=== PATIENT | male | born 1945 | race Caucasian/White ===

== ENCOUNTER → 2019-12-28 14:38 | Outpatient (BNVA) | payer OTHER, SELFPAY | PROVIDERS: Family Provider Family Medicine; PCP Family Medicine; Visit Provider Nurse Practitioner Family | DX: R97.20 Elevated prostate specific antigen [PSA] (principal) | CPT/HCPCS: 84153 ==

== ENCOUNTER → 2020-01-06 10:26 | Outpatient (BNVA) | payer MEDICARE, SELFPAY | PROVIDERS: Family Provider Family Medicine; PCP Family Medicine; Visit Provider Urology | DX: R97.20 Elevated prostate specific antigen [PSA] (principal) | CPT/HCPCS: 81001 ==

== ENCOUNTER → 2020-04-05 11:03 | Outpatient (BNVA) | payer MEDICARE, SELFPAY | PROVIDERS: Absent Provider Urology; Family Provider Family Medicine; PCP Family Medicine; Referring Provider Urology; Visit Provider Urology | DX: R97.20 Elevated prostate specific antigen [PSA] (principal) | CPT/HCPCS: 84153 ==

== ENCOUNTER → 2020-04-14 10:38 | Outpatient (BNVA) | payer MEDICARE, SELFPAY | PROVIDERS: Family Provider Family Medicine; PCP Family Medicine; Visit Provider Urology | DX: R97.20 Elevated prostate specific antigen [PSA] (principal) | CPT/HCPCS: 81001 ==

== ENCOUNTER → 2020-07-11 11:44 | Outpatient (BNVA) | payer MEDICARE, SELFPAY | PROVIDERS: Family Provider Family Medicine; PCP Family Medicine; Referring Provider Urology; Visit Provider Urology | DX: R97.20 Elevated prostate specific antigen [PSA] (principal) | CPT/HCPCS: 36415; 84153 ==

== ENCOUNTER → 2020-07-20 10:29 | Outpatient (BNVA) | payer MEDICARE, SELFPAY | PROVIDERS: Family Provider Family Medicine; PCP Family Medicine; Visit Provider Urology | DX: R97.20 Elevated prostate specific antigen [PSA] (principal); I10 Essential (primary) hypertension | CPT/HCPCS: 81001 ==

== ENCOUNTER → 2020-10-18 13:35 | Outpatient (BNVA) | payer MEDICARE, SELFPAY | PROVIDERS: Family Provider Family Medicine; PCP Family Medicine; Referring Provider Urology; Visit Provider Urology | DX: R97.20 Elevated prostate specific antigen [PSA] (principal) | CPT/HCPCS: 84153 ==

== ENCOUNTER → 2020-10-24 10:24 | Outpatient (BNVA) | payer MEDICARE, SELFPAY | PROVIDERS: Family Provider Family Medicine; PCP Family Medicine; Visit Provider Urology | DX: R97.20 Elevated prostate specific antigen [PSA] (principal) | CPT/HCPCS: 81003 ==

== ENCOUNTER → 2021-01-16 11:10 | Outpatient (BNVA) | payer MEDICARE, SELFPAY | PROVIDERS: Family Provider Family Medicine; PCP Family Medicine; Referring Provider Urology; Visit Provider Urology | DX: R97.20 Elevated prostate specific antigen [PSA] (principal) | CPT/HCPCS: 84153 ==

== ENCOUNTER → 2021-01-23 10:50 | Outpatient (BNVA) | payer MEDICARE, SELFPAY | PROVIDERS: Family Provider Family Medicine; PCP Family Medicine; Visit Provider Urology | DX: R97.20 Elevated prostate specific antigen [PSA] (principal); I10 Essential (primary) hypertension | CPT/HCPCS: 81003 ==

== ENCOUNTER → 2021-04-14 14:01 | Outpatient (BNVA) | payer MEDICARE, SELFPAY | PROVIDERS: Family Provider Family Medicine; PCP Family Medicine; Visit Provider Urology | DX: R97.20 Elevated prostate specific antigen [PSA] (principal) | CPT/HCPCS: 88305 ==

== ENCOUNTER 2021-05-04 08:32 | Outpatient (CLI) | payer MEDICARE, SELFPAY ==
--- NOTE | 2021-05-04 08:39 | CT_ITS ---
WS: [id number] CT ABDOMEN AND PELVIS WITH AND WITHOUT CONTRAST HISTORY: Prostate carcinoma. TECHNIQUE: Unenhanced 5 mm axial imaging first performed through the abdomen. Post contrast imaging t hrough the abdomen and pelvis. Oral contrast has been provided. Sagittal and coronal reformats are s ubmitted. All CT scans at [facility] use at least one of these dose optimization techniqu es: automated exposure control; mA and/or kV adjustment per patient size (includes targeted exams whe re dose is matched to clinical indication); or iterative reconstruction. CONTRAST: Omnipaque 300; 95 mL IV. DLP: 4354.24 mGy.cm COMPARISON: 01/30/2019 Lung bases are clear. Heart is slightly enlarged. No pericardial or pleural effusion. Liver is normal size. Normal portal vein. Normal gallbladder. Normal size spleen with granulomata. No rmal pancreas and adrenal glands. Moderate atherosclerosis of aorta with mild ectasia. Mild aneurysma l dilatation to 3.1 cm. RIGHT kidney: 11.3 cm in length. Very minimal perinephric stranding with no calcification or obstruct ion. No ureteral dilatation. No uroepithelial lesions. LEFT kidney: 10.7 cm in length. No mass or calcification or hydronephrosis. No uroepithelial lesions. Urinary bladder is well distended. Mild diffuse wall thickening with no enhancing masses. Prostate gl and is not significantly enlarged. Large amount of central prostate gland calcification. No adenopathy or free fluid. No GI tract obstruction. The appendix is normal. Severe degenerative disc disease with mild progression at L3-4 and L4-5. 3 mm anterolisthesis of L5 a nd bilateral pars defects at L5. CT/CT abdomen pelvis wo/w [id number] IMPRESSION: 1. No renal mass, obstruction or calcification. 2. Normal appendix. 3. No adenopathy or free fluid. 4. Mild aneurysmal dilatation infrarenal aorta 3.1 cm. 5. Severe degenerative disc disease with osteochondrosis at L3-4 and L4-5. 6. Mild cardiomegaly. 7. No osteoblastic bone disease identified.
--- NOTE | 2021-05-04 08:44 | NM_ITS ---
WS: [id number] NUCLEAR MEDICINE WHOLE BODY BONE SCAN HISTORY: PROSTATE CANCER COMPARISON: None available. TECHNIQUE: The patient was injected with 26.5 mCi of Technetium 99m HDP and serial whole-body scintig homa have been performed with anterior and posterior images. Moderate increased uptake within the mid sternum. Mild bilateral SC joint arthritis. Severe arthritic changes at the knees, greatest in the medial compartments. There is additional focal increased uptak e in the RIGHT medial tarsal region. Normal soft tissue uptake and renal uptake. NM/NM bone scan whole body* [id number] IMPRESSION: 1. Increased uptake in the mid sternal body. Cannot exclude metastatic disease . Radiographs obtained on the same day were nondiagnostic. Consider follow-up C T evaluation of the sternum to better evaluate the marrow. 2. SC joint and bilateral knee joint moderate osteoarthritic changes.
[2021-05-04 09:54] LABS: Blood Urea Nitrogen 11 mg/dL (8-23)
[2021-05-04] MEDS: iohexol 300 mg/mL 100 mL Btl IV (10:45)
[2021-05-04] MEDS: iohexol 300 mg/mL 50 mL Btl PO (10:53)
--- NOTE | 2021-05-04 12:00 | XR_ITS ---
WS: [id number] Sternum, 3 view. HISTORY: Correlate with bone scan imaging. Significantly limited evaluation of the sternum radiographically. Cannot exclude destructive bone les ion. XR/XR sternum min 2V [id number] IMPRESSION: Nondiagnostic radiographic series of the sternum.
== END 2021-05-04 08:33 | disposition home or self-care (01) ==
PROVIDERS: PCP Family Medicine; Visit Provider Urology
DX: C61 Malignant neoplasm of prostate (principal); I51.7 Cardiomegaly; M51.36 Other intervertebral disc degeneration, lumbar region; M93.98 Osteochondropathy, unspecified other
CPT/HCPCS: 71120; 74178; 78306; 82565; 84520; A9561

== ENCOUNTER 2021-05-25 12:52 | Outpatient (CLI) | payer MEDICARE, SELFPAY ==
[2021-05-25 14:53] LABS: Basophils % 0.1 %; Eosinophils # 0.6 10^3/uL (0.0-0.8); Eosinophils % 8.9 %; Hematocrit 45.5 % (42.0-52.0); Hemoglobin 15.2 g/dL (11.7-16.6); Lymphocytes # 1.6 10^3/uL (0.8-4.8); Mean Corpuscular HGB Conc 33.4 g/dL (30.0-36.0); Mean Corpuscular Hemoglobin 33.5 pg (28.0-34.0); Mean Corpuscular Volume 100.2 fL (80-94); Mean Platelet Volume 9.8 fL (7.4-10.4); Monocytes # 0.8 10^3/uL (0.2-0.9); Monocytes % 11.8 %; Neutrophils # 3.85 10^3/uL (1.8-7.7); Neutrophils % 55.9 %; Nucleated Red Blood Cells % 0 %; Platelet Count 191 10^3/cmm (130-400); Red Blood Count 4.54 10^6/uL (4.1-5.3); Red Cell Distribution Width 12.9 % (12.1-15.1); White Blood Count 6.9 10^3/uL (4.0-10.0)
--- NOTE | 2021-05-25 15:04 | ONC CON_ITS ---
Dr. Arredondo New Patient Note Patient: Serg Balderrama Unit #: [id number]: 1945 Dicatated By: Cyn Arredondo M.D.Date of Visit: May 25, 2021 Onc MED New Patient/Consult Referring Physician: Dr. Olivier Ramírez M.D. History of Present Illness: Mr. Serg Balderrama, is a 76-year-old gentleman with a history of progressive PSA level since 2016 eventually on on January 16, 2021 his PSA was 30.3, SHAVON showed no distinct nodularity but it was difficult exam due to patient's perineal thickness, and eventually patient underwent TRUS/biopsy on April 14, 2021, all cores from both lobes of prostate gland showed large volume SCENIC DESIGNER Sanjiv 4+3. 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 No osteoblastic bone disease seen. And bone scan showed increased uptake in the mid sternal body, otherwise unremarkable plain x-rays sternum showed no obvious abnormality, as per patient a year ago he had a 'face first' fall and at that time he was told that his sternum sustained injury/fracture. Patient denies any specific complaints denies any dysuria or hematuria denies any new bony pains except chronic left knee pain and knee replacement is under consideration. Denies any weight loss, denies any smoking or alcohol use denies any abdominal pain or dysuria or hematuria. Past Medical History: Mr. Balderrama's medical history consists of hypertension. Past Surgical History: Mr. Balderrama's surgical/procedural history consists of hand surgery, knee surgery, surgical amputation of finger, TRUSP biopsy, and umbilical hernia repair. Medications: Carvedilol 1 Tablet (of 12.5 mg) Oral b.i.d., Pravastatin Sodium 1 Tablet (of 40 mg) Oral daily Allergies: No Known Allergies. Social History: Mr. Balderrama is single. Mr. Balderrama no longer smokes. He drinks daily. He consumes 3 drinks/day 7 days/week. Quit smoking 28 years ago. Family History: Mr. Balderrama's mother at age 78: stroke, and myocardial infarction. Mr. Balderrama's father at age 85: dementia. Mr. Balderrama has 2 brothers: 1 alive, 1 . Review Of Symptoms: Review of Systems is not available for this patient. Vital Signs: Performed on May 25, 2021 13:45: 0, 37.38 (HIGH), 2.13 sq.m, 66 in, 92 % (LOW), 68 /min, 18 /min, 170/98 mm(hg) (HIGH), 97.0 F (LOW), and 231.6 lbs (HIGH). Performance Status: 0 - Fully active, able to carry on all predisease activities without restrictions. (ECOG) Physical Examination: ENMT - No mouth sores, no thrush, no jaundice, Respiratory - Lungs are clear to auscultation, Cardiovascular - Regular rate and rhythm of heart, Abdomen - Soft, bowel sounds present, Extremities - No edema. Lab/Imaging: Most recent lab results are not available for this patient. Impression: Prostate cancer, per TRUS P/biopsy done on April 14, 2021 which showed Salem score 4+3, all core biopsies obtained from bilateral lobes of prostate were positive, PSA was more than 30 on January 16, 2021, CT scan of abdomen pelvis done on May 04, 2021 showed no evidence of pelvic lymphadenopathy or bone abnormality T2c versus T3a, NX MX, PSA 30.3 in January 2021, high risk because of PSA more than 30 and at least T2c Bone scan done on May 04, 2021 showed no evidence of bone mets but sternum abnormality, patient has history of fall with sternal injury about a year prior to the diagnosis, Dr. 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 And plain x-rays sternum did not show significant abnormality. So clinically it appears patient has localized disease but concern was whether he has extraprostatic involvement which will put him in very high risk group and does patient usually offered additional chemotherapy with Taxotere, patient of is reluctant as far as chemotherapy is concerned and would not consider MRI scan of prostate gland to assess extraprostatic involvement but agreed for ADT concurrent with radiation therapy and also concerned about daily transportation during radiation therapy as he lives near [facility]. So at this point, being high risk, we will start him on Casodex 50 mg p.o. daily for 4 to 6 weeks and then also consider Zoladex 10.8 mg IM every 3 months and will refer him to radiation oncology for evaluation for definitive ADT/radiation therapy and being high risk, he would be a candidate for extended adjuvant hormonal therapy with Zoladex alone for up to 2 to 3 years.Or ADT alone which may provide him decent disease control. Patient would like to see radiation oncology. All the side effect possible benefits associated with Zoladex/Casodex were discussed including generalized weakness and fatigue, hot flashes, hepatic toxicity especially with Casodex, gynecomastia, mood swings, weight gain, fluid retention were mentioned, further teaching will done by chemotherapy nurse. We will obtain approval from his insurance prior to the treatment. In the meantime we will obtain CBC CMP, testosterone and PSA today and also given prescription for Casodex 50 mg p.o. daily and obtain approval from insurance regarding his Zoladex which was given every 3 months and will refer him to radiation oncology and patient return to clinic in 1 month with PSA, CMP CBC Signed By: Cyn Arredondo M.D. <<Signature on File>>
[2021-05-25 15:53] LABS: Alanine Aminotransferase 11 U/L (0-41); Albumin Level 3.9 g/dL (3.5-5.2); Alkaline Phosphatase 91 IU/L (40-130); Blood Urea Nitrogen 15 mg/dL (8-23); Calcium 8.7 mg/dL (8.5-10.5); Carbon Dioxide 25 mmol/L (22-29); Globulin 3.5 g/dL (1.3-4.6); Glucose 81 mg/dL (65-115); Total Bilirubin 0.5 mg/dL (0.15-1.2); Total Protein 7.4 g/dL (6.6-8.7)
[2021-05-25 18:50] LABS: Testosterone Total 270.3 ng/dL (193-740)
[2021-05-25 18:55] LABS: Chloride 104 mmol/L (98-107); Osmolality Calculated 286 mOsm/kg (285-295); Sodium 138 mmol/L (136-145)
[2021-05-25 19:03] LABS: Anion Gap 13.8 (5-19); Aspartate Amino Transferase 23 U/L (0-40); Potassium 4.8 mmol/L (3.5-5.1)
== END 2021-05-25 12:53 | disposition home or self-care (01) ==
PROVIDERS: PCP Family Medicine; Referring Provider Urology; Visit Provider Internal Medicine Hematology & Oncology
DX: C61 Malignant neoplasm of prostate (principal); R97.20 Elevated prostate specific antigen [PSA]; M17.0 Bilateral primary osteoarthritis of knee; Z79.899 Other long term (current) drug therapy
CPT/HCPCS: 36415; 80053; 84153; 84403; 85025; 99205

== ENCOUNTER 2021-06-01 06:32 | Outpatient (CLI) | payer MEDICARE, SELFPAY ==
--- NOTE | 2021-06-01 12:02 | N.ONRAD NP_ITS ---
Radiation Oncology New Patient Visit Patient: Serg Balderrama MR#: [id number] : 1945> Age: 76> Sex: Male> Dictated by: Dr. Krunal Herrera Date of Service: 06/01/2021 Referring Physician(s) : Cyn Arredondo M.D. Diagnosis: C61 - malignant neoplasm of prostate, Diagnosed 05/25/2021 (active). Stage T2c (at least) N0M0, grade group 3, high risk group Radiotherapy to date: Summary > No prior radiation therapy. Chief Complaint / History of Present Illness: Mr. Mr. Balderrama is a 76-year-old man who has had a progressively rising PSA over the past 5 years. Biopsies have been recommended in the past but he did not give consent. In January of this year his PSA went slightly above 30 and he agreed to proceeding with prostate biopsies. On April 14, 2021 he underwent prostate imaging and biopsies with 6 cores being taken from each lobe. All cores contained Sanjiv 4+3 equal 7 carcinoma with all but one of the cores being involved 100% by cancer. The 12th core showed 95% involvement. Perineural invasion was also noted. The physical exam of the prostate did not reveal any abnormality. Mr. Balderrama is largely asymptomatic. He has very mild urinary tract symptoms. He has no new or unusual bone pain. His performance status is unchanged compared to 5 years ago. The patient's PSA level puts him in the high risk category. Therefore, imaging for metastatic disease was performed. The patient had a negative CT of the abdomen and pelvis. His bone scan showed uptake in the sternum, but this area had been injured in a face first fall on ice last winter. There were no other suspicious findings on the bone scan. According to NCCN guidelines, Mr. Balderrama has started hormonal therapy. He is currently on Casodex and will receive a Zoladex injection as soon as there is insurance company approval to proceed. He is referred for evaluation and recommendations with regard to radiation in conjunction with hormonal therapy. Current Medications: Bicalutamide, carvedilol, pravastatin Sodium. Allergies: No Known Allergies Medical History: - Hypercholesterolemia, - hypertension. No history of collagen vascular disease. No previous radiation therapy. Surgical History: Hand surgery, knee surgery, surgical amputation of finger, tRUSP biopsy and umbilical hernia repair. Family History: Father is at age 85 having experienced dementia. Mother is at age 78 having experienced stroke, and myocardial infarction. Brother is at age 59. Brother is alive. Social History: Last screened on 06/01/2021 - Yes - but has quit for 52 years. Smoked 2.0 packs/day for 6 years (12 pack years). Last screened on 06/01/2021 - Drinks occasionally 3 drinks/day 7 days/week. Current Complaints / Review of Systems: . Constitutional: no weight loss, loss of appetite, or fatigue. Neurological: He uses glasses for reading. Otherwise no visual symptoms. He has no problems with hearing. No headaches, blackouts, or fainting spells. Cardiac: no chest pain, palpitations, or noticed skipped beats. Pulmonary: no shortness of breath, unusual cough, hemoptysis, or sputum production. Gastrointestinal: no difficulty with chewing swallowing digestion or bowel movements. No rectal bleeding. : He filled out the international prostate symptom score. He has occasional incomplete emptying and frequency. He denies urgency, intermittency, or straining. He has a weak stream less than 50% of the time. He has nocturia x3 or 4. He is pleased with his urinary tract symptom quality of life. Musculoskeletal: He has severe degenerative arthritis in his lower back as noted on the recent CT scan. He has a chronic limp related to problems with his left knee. He has had cartilage surgery previously and prior to the Covid pandemic, Dr. Guzman was considering operating on the knee again. Mr. Balderrama has pain in his sternum which is very mild and improving. This pain is related to a fall on ice last winter. He has no other new or troublesome bone pain. Vital Signs: Performed on 06/01/2021 9:14 AM BMI - 37.026 kg/m2 (high), Height - 66.00 in, Weight - 229.4 lbs, Temperature - 96.7 f, Pulse - 60, Respiration - 18, O2 Sat - 97 %, Pain - 0 and BP - 130/ 86 mm(hg). Physical Exam: Alert, oriented, in no acute distress. The neck is supple and free of masses or lymphadenopathy. No supraclavicular lymphadenopathy. Lungs are clear to percussion. On auscultation no rales rhonchi or wheezes. Heart rhythm is regular for the most part but occasional skipped beats were noted. No murmur or gallop. Abdomen has no distention. No organomegaly or mass or tenderness. Rectal exam was difficult because of the thickness of the buttocks. He had good sphincter tone. No rectal masses. The lower half of the prostate was soft without nodularity and did not feel enlarged. I could not reach the upper prostate or the seminal vesicles. Musculoskeletal exam revealed him to walk with a limp using a cane. This is primarily related to left knee discomfort related to arthritis. No bone tenderness detected. Performance Status: 1 - No physically strenuous activity, but ambulatory and able to carry out light or sedentary work (e.g. office work, light house work). (ECOG) Pathology: Primary, c61 - malignant neoplasm of prostate, Diagnosed 05/25/2021 (active). 12 of 12 cores contained Sanjiv 4+3 equal 7 adenocarcinoma with almost 100% of every core being involved by cancer. Lab: PSA January 2021 30.3. Imaging: See HPI Impression: Mr. Balderrama has locally advanced apparently nonmetastatic carcinoma of the prostate. Although technically he fits in the high risk group, based on his having Sanjiv 4+3 = 7 carcinoma in 12 of 12 biopsy cores with almost 100% of every core containing cancer, his cancer may behave more like those in the very high risk group. Mr. Balderrama does not have any comorbidities that predict in the next 5 to 10 years and therefore he is a candidate for aggressive treatment. He almost certainly has extraprostatic extension and I do not think he would be a good candidate for surgery. He has started on hormonal therapy and docetaxel has also been advised, though he declined any chemotherapy. He is currently on Casodex but will receive a Zoladex injection as soon as insurance approval is obtained. I discussed the treatment approach for high risk and very high risk group prostate cancer with Mr. Balderrama. I told him we wait a few weeks after his first hormone shot to proceed with radiation. Although recommendations vary, I told him that I usually wait about 1 month to proceed with radiation. I discussed a typical course of radiation to the pelvis and prostate. I reviewed side effects and possible complications. I told him his urinary tract symptoms may worsen during treatment and he also may have some rectal irritation with diarrhea. We discussed the rare risk of severe rectal or bladder injury. We discussed the very high risk of impotence. He acknowledged understanding these risks. [place] and asked about receiving a shorter course of radiation than 8 [address] I told him Dr. Hill may consider hypofractionation but that will be up to his judgment. Plan: Return for simulation approximately 3 weeks after receiving his first hormone injection. Signed by: 06/01/2021 12:00:54 PM <<Signature on File>> Time spent with patient: CPT Code: CPT Code:
== END 2021-06-01 06:33 | disposition home or self-care (01) ==
LOC: ONCMED 06:35
PROVIDERS: PCP Family Medicine; Visit Provider Specialist
DX: C61 Malignant neoplasm of prostate (principal); E78.00 Pure hypercholesterolemia, unspecified; I10 Essential (primary) hypertension; Z87.891 Personal history of nicotine dependence; Z79.899 Other long term (current) drug therapy
CPT/HCPCS: 99205

== ENCOUNTER 2021-06-22 10:49 | Outpatient (CLI) | payer MEDICARE, SELFPAY ==
[2021-06-22 11:13] LABS: Basophils % 0.2 %; Eosinophils # 0.7 10^3/uL (0.0-0.8); Eosinophils % 11.1 %; Lymphocytes # 1.2 10^3/uL (0.8-4.8); Lymphocytes % 18.3 %; Mean Corpuscular HGB Conc 33.3 g/dL (30.0-36.0); Mean Corpuscular Volume 99.1 fL (80-94); Mean Platelet Volume 9.5 fL (7.4-10.4); Monocytes # 0.8 10^3/uL (0.2-0.9); Monocytes % 12.5 %; Neutrophils # 3.77 10^3/uL (1.8-7.7); Neutrophils % 57.4 %; Nucleated Red Blood Cells % 0 %; Platelet Count 163 10^3/cmm (130-400); Red Blood Count 4.54 10^6/uL (4.1-5.3); Red Cell Distribution Width 12.9 % (12.1-15.1); White Blood Count 6.6 10^3/uL (4.0-10.0)
[2021-06-22 11:53] LABS: Alanine Aminotransferase 12 U/L (0-41); Albumin Level 3.9 g/dL (3.5-5.2); Alkaline Phosphatase 105 IU/L (40-130); Anion Gap 11.5 (5-19); Aspartate Amino Transferase 19 U/L (0-40); Blood Urea Nitrogen 14 mg/dL (8-23); Calcium 8.9 mg/dL (8.5-10.5); Carbon Dioxide 28 mmol/L (22-29); Chloride 106 mmol/L (98-107); Globulin 3.2 g/dL (1.3-4.6); Glucose 80 mg/dL (65-115); Osmolality Calculated 291 mOsm/kg (285-295); Potassium 4.5 mmol/L (3.5-5.1); Sodium 141 mmol/L (136-145); Total Bilirubin 0.5 mg/dL (0.15-1.2); Total Protein 7.1 g/dL (6.6-8.7)
[2021-06-22 12:23] LABS: Testosterone Total 351.4 ng/dL (193-740)
[2021-06-22] MEDS: lidocaine 1% INJ 20 mL INJECTION (13:12)
[2021-06-22] MEDS: goserelin acetate 10.8 mg Implant SUBCUT (13:23)
--- NOTE | 2021-06-22 13:46 | ONC FU_ITS ---
Dr. Arredondo follow up note Patient: Serg Balderrama Unit #: [id number]: 1945 Dicatated By: Cyn Arredondo M.D.Date of Visit:Jun 22, 2021 Onc Med Follow-up/Prog Note History of Present Illness: Mr. 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 No osteoblastic bone disease seen. And bone scan showed increased uptake in the mid sternal body, otherwise unremarkable plain x-rays sternum showed no obvious abnormality, as per patient a year ago he had a 'face first' fall and at that time he was told that his sternum sustained injury/fracture. Patient denies any specific complaints denies any dysuria or hematuria denies any new bony pains except chronic left knee pain and knee replacement is under consideration. Denies any weight loss, denies any smoking or alcohol use denies any abdominal pain or dysuria or hematuria. Started on daily Casodex on May 25, 2021 and 3 monthly Zoladex was added on June 22, 2021 Came for follow-up, denies any specific complaints, no fever chills, no nausea or vomiting, no diarrhea constipation, no hot flashes, no mood swings, no new bony pains, no hematuria or dysuria, tolerating oral Casodex well otherwise Medications: Carvedilol 1 Tablet (of 12.5 mg) Oral b.i.d., Pravastatin Sodium 1 Tablet (of 40 mg) Oral daily Allergies: No Known Allergies. Review of Systems: Review of Systems is not available for this patient. Vital Signs: Performed on Jun 22, 2021 12:43 Height - 66.00 in Weight - 229.8 lbs (HIGH) BSA - 2.12 sq.m BMI - 37.09 (HIGH) Temperature - 97.4 F (LOW) Pulse - 82 /min Respiration - 18 /min BP - 172/108 mm(hg) (HIGH) O2 Sat - 97 % Pain - 0 Fatigue - 0 Performance Status: 0 - Fully active, able to carry on all predisease activities without restrictions. (ECOG) Physical Examination: ENMT - No mouth sores, no thrush, no jaundice, Respiratory - Lungs are clear to auscultation, Cardiovascular - Regular rate and rhythm of heart , Abdomen - Soft, bowel sounds present, Extremities - No visible edema. Lab/Imaging: Most recent lab results are not available for this patient. Impression: Prostate cancer, per TRUS P/biopsy done on April 14, 2021 which showed Winfield score 4+3, all core biopsies obtained from bilateral lobes of prostate were positive, PSA was more than 30 on January 16, 2021, CT scan of abdomen pelvis done on May 04, 2021 showed no evidence of pelvic lymphadenopathy or bone abnormality T1c versus T3a, NX MX, PSA 30.3 in January 2021, high risk because of PSA more than 30 Bone scan done on May 04, 2021 showed no evidence of bone mets but sternum abnormality, patient has history of fall with sternal injury about a year prior to the diagnosis, Dr. 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 Plan: Discussed with patient regarding his labs white blood count 6.6 hemoglobin 15 hematocrit 45 platelets 163,000 CMP within normal limits, PSA 18.87 compared to 36.09 and testosterone 351.4 Clinically, patient doing well with no new signs symptom suggestive of disease progression, tolerating daily Casodex well, patient has completed 1 month of Casodex, at this point will discontinue Casodex and patient will receive his first dose of 3 monthly Zoladex today and then he will return to clinic in 3 months with CMP and PSA Patient is scheduled to start radiation therapy to prostate gland in first week of July 2021. Signed By: Cyn Arredondo M.D. <<Signature on File>>
== END 2021-06-22 10:50 | disposition home or self-care (01) ==
LOC: ONCMED 10:52
PROVIDERS: PCP Family Medicine; Visit Provider Internal Medicine Hematology & Oncology
DX: Z51.11 Encounter for antineoplastic chemotherapy (principal); C61 Malignant neoplasm of prostate; M17.0 Bilateral primary osteoarthritis of knee; Z79.899 Other long term (current) drug therapy
CPT/HCPCS: 36415; 80053; 84153; 84403; 85025; 96372; 96402; 99215; J9202

== ENCOUNTER 2021-08-10 06:32 | Outpatient (RCR) | payer MEDICARE, SELFPAY ==
--- NOTE | 2021-07-13 | CT_ITS ---
Radiation Therapy Planning CT images; total exam DLP: 1232.21 mGy-cm MTDD
--- NOTE | 2021-07-13 10:45 | ONCRAD EPV_ITS ---
Radiation Oncology Established Patient Visit Patient: Conchis Ulrich [id number] : 1945> Age: 76> Sex: Male> Dictated by: Dr. Krunal Herrera Date of Service: 07/13/2021 Referring Physician(s) : Cyn Arredondo Diagnosis: C61 - Malignant neoplasm of prostate, Diagnosed 05/25/2021 (Active) Prostate cancer Mr. 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 No osteoblastic bone disease seen. And bone scan showed increased uptake in the mid sternal body, otherwise unremarkable plain x-rays sternum showed no obvious abnormality, as per patient a year ago he had a 'face first' fall and at that time he was told that his sternum sustained injury/fracture. Patient denies any specific complaints denies any dysuria or hematuria denies any new bony pains except chronic left knee pain and knee replacement is under consideration. Denies any weight loss, denies any smoking or alcohol use denies any abdominal pain or dysuria or hematuria. Started on daily Casodex on May 25, 2021 and 3 monthly Zoladex was added on June 22, 2021 Came for follow-up, denies any specific complaints, no fever chills, no nausea or vomiting, no diarrhea constipation, no hot flashes, no mood swings, no new bony pains, no hematuria or dysuria, tolerating oral Casodex well otherwise Radiotherapy to Date: None. Current History: Mr. Balderrama returns for simulation. He continues Casodex and has started his injections of Zoladex. His general condition is stable. His only complaint is that he is having increased nocturia. His urinary tract symptom form when seen last month indicated nocturia x3 or 4. It is increased to 5 or 6. He has no history of congestive heart failure. He denies any peripheral edema developing during the day. He has no dysuria, pyuria, or hematuria. He feels the stream is adequate. Current Medications: Bicalutamide, carvedilol, pravastatin Sodium. Allergies: No Known Allergies Current Complaints / Review of Systems: . Vital Signs: Performed on 07/13/2021 9:23 AM BMI - 36.865 kg/m2 (high), Height - 66.00 in, Weight - 228.4 lbs, Temperature - 97.0 f, Pulse - 79 /min, Respiration - 20 /min, O2 Sat - 96 %, Pain - 0, Fatigue - 0 and BP - 164/ 101 mm(hg)(high). Physical Exam: General: Alert and oriented x 3. No acute distress. HEENT: Normocephalic, atraumatic. EXTREMITIES: No peripheral edema is identified. . NEUROLOGIC: Cranial nerves II ???XII are grossly intact. Normal gait, no ataxia. Performance Status: 1 - No physically strenuous activity, but ambulatory and able to carry out light or sedentary work (e.g. office work, light house work). (ECOG) Lab: None pending. Pathology: Primary, c61 - malignant neoplasm of prostate, Diagnosed 05/25/2021 (active). Imaging: None. Impression: Ready to proceed with simulation. I discussed with Mr. Balderrama that we will be treating the pelvic nodes because of the aggressive nature of his cancer. He specifically asked about hypofractionation when he was originally seen. I told him I am reluctant to give just 20 treatments since we are treating the pelvic nodes, but that I feel a course of 28 fractions will be safe and adequate. I once again discussed the acute side effects of treatment and discussed the small risk of bowel or bladder injury that could result in the need for surgery and even a permanent ostomy. He wishes to proceed. He is quite troubled by the increase in nocturia. In the event that he is not fully emptying his bladder, I am going to put him on a trial of Flomax. I cautioned him about orthostatic hypotension with the first couple of doses. Simulation performed. Signed by: 07/13/2021 10:44:09 AM <<Signature on File>> Time spent with patient: CPT Code: CPT Code:
--- NOTE | 2021-07-24 10:42 | ONCRAD TMN_ITS ---
Radiation Oncology Treatment Management Note Patient Name: Serg Balderrama Date of : 1945 Date of Service: 07/24/2021 Attending Physician: Patrick Hill M.D. Serg Balderrama is a 76 year old white male diagnosed with a clinical stage IIIA (T1bN0) high-risk stratification prostate cancer. His initial PSA was 30.3 ng/mL. A TRUS biopsy diagnosed an adenocarcinoma of the prostate with a Sanjiv Score of 4+3 (Grade Group 3). The patient has received ADT (Casodex was prescribed on May 25 and Zoladex was administered on June 22). The patient has received 2 Gy of a prescribed 46 Sosa to the prostate and regional lymph nodes with an intensity modulated radiotherapy plan utilizing a step and shoot treatment technique. An additional 32 Sosa will be delivered to the prostate gland subsequent to the initial cadena. He has received neoadjuvant hormonal therapy. Upon review of systems, he denied any genitourinary complaints related to radiotherapy. On physical examination, the patient weighed 233 lbs. His temperature was 96.1 ???F with a blood pressure of 170/113 mmHg. The pulse was 71 bpm and his respiratory rate was 22. There was no erythema within the treatment cadena. Continue pelvic radiotherapy as prescribed. Signed by: Dr. Patrick Hill 07/26/2021 12:39:33 PM
--- NOTE | 2021-07-31 10:35 | ONCRAD TMN_ITS ---
Radiation Oncology Treatment Management Note Patient Name: Serg Balderrama Date of : 1945 Date of Service: 07/31/2021 Attending Physician: Patrick Hill M.D. Serg Balderrama is a 76 year old white male diagnosed with a clinical stage IIIA (T1bN0) high-risk stratification prostate cancer. His initial PSA was 30.3 ng/mL. A TRUS biopsy diagnosed an adenocarcinoma of the prostate with a Sanjiv Score of 4+3 (Grade Group 3). The patient has received ADT (Casodex was prescribed on May 25 and Zoladex was administered on June 22). The patient has received 12 Gy of a prescribed 46 Sosa to the prostate and regional lymph nodes with an intensity modulated radiotherapy plan utilizing a step and shoot treatment technique. An additional 32 Sosa will be delivered to the prostate gland subsequent to the initial cadena. Upon review of systems, he denied any genitourinary complaints related to radiotherapy. On physical examination, the patient weighed 229 lbs. His temperature was 96.5 ???F with a blood pressure of 141/91 mmHg. The pulse was 61 bpm and his respiratory rate was 20. There was no erythema within the treatment cadena. Continue pelvic radiotherapy as planned. Signed by: Dr. Patrick Hill 07/31/2021 10:33:42 AM
--- NOTE | 2021-08-08 10:44 | ONCRAD TMN_ITS ---
Radiation Oncology Treatment Management Note Patient Name: Serg Balderrama Date of : 1945 Date of Service: 08/08/2021 Attending Physician: Patrick Hill M.D. Serg Balderrama is a 76 year old white male diagnosed with a clinical stage IIIA (T1bN0) high-risk stratification prostate cancer. His initial PSA was 30.3 ng/mL. A TRUS biopsy diagnosed an adenocarcinoma of the prostate with a Sanjiv Score of 4+3 (Grade Group 3). The patient has received ADT (Casodex was prescribed on May 25 and Zoladex was administered on June 22). The patient has received 24 Gy of a prescribed 46 Sosa to the prostate and regional lymph nodes with an intensity modulated radiotherapy plan utilizing a step and shoot treatment technique. An additional 32 Sosa will be delivered to the prostate gland subsequent to the initial cadena. Upon review of systems, he reported nocturia (5 times). On physical examination, the patient weighed 230 lbs. His temperature was 96.53???F with a blood pressure of 155/97 mmHg. The pulse was 76 bpm and his respiratory rate was 20. There was no erythema within the treatment cadena. Continue pelvic radiotherapy as prescribed. I will increase the Flomax to 0.8 mg nightly. Signed by: Dr. Patrick Hill 08/08/2021 10:43:07 AM
== END 2021-08-10 23:59 | disposition home or self-care (01) ==
LOC: ONCMED 06:32
PROVIDERS: PCP Family Medicine; Visit Provider Radiology Radiation Oncology
DX: Z51.0 Encounter for antineoplastic radiation therapy (principal); C61 Malignant neoplasm of prostate; R97.20 Elevated prostate specific antigen [PSA]; C77.2 Secondary and unspecified malignant neoplasm of intra-abdominal lymph nodes; Z79.899 Other long term (current) drug therapy
CPT/HCPCS: 77300; 77301; 77334; 77336; 77338; 77385; 77470; 99215

== ENCOUNTER 2021-09-08 06:18 | Outpatient (RCR) | payer MEDICARE, SELFPAY ==
--- NOTE | 2021-08-14 10:15 | ONCRAD TMN_ITS ---
Radiation Oncology Treatment Management Note Patient Name: Serg Balderrama Date of : 1945 Date of Service: 08/14/2021 Attending Physician: Patrick Hill M.D. Serg Balderrama is a 76 year old white male diagnosed with a clinical stage IIIA (T1bN0) high-risk stratification prostate cancer. His initial PSA was 30.3 ng/mL. A TRUS biopsy diagnosed an adenocarcinoma of the prostate with a Sanjiv Score of 4+3 (Grade Group 3). The patient has received ADT (Casodex was prescribed on May 25 and Zoladex was administered on June 22). The patient has received 30 Gy of a prescribed 46 Sosa to the prostate and regional lymph nodes with an intensity modulated radiotherapy plan utilizing a step and shoot treatment technique. An additional 32 Sosa will be delivered to the prostate gland subsequent to the initial cadena. Upon review of systems, he described improvement with nocturia with 0.8 mg Flomax. On physical examination, the patient weighed 231 lbs. His temperature was 96.9 ???F with a blood pressure of 136/94 mmHg. The pulse was 69 bpm and his respiratory rate was 20. There was no erythema within the treatment cadena. Continue pelvic radiotherapy as planned. Signed by: Dr. Patrick Hill 08/14/2021 10:13:27 AM
--- NOTE | 2021-08-21 10:42 | ONCRAD TMN_ITS ---
Radiation Oncology Treatment Management Note Patient Name: Serg Balderrama Date of : 1945 Date of Service: 08/21/2021 Attending Physician: Patrick Hill M.D. Serg Balderrama is a 76 year old white male diagnosed with a clinical stage IIIA (T1bN0) high-risk stratification prostate cancer. His initial PSA was 30.3 ng/mL. A TRUS biopsy diagnosed an adenocarcinoma of the prostate with a Sanjiv Score of 4+3 (Grade Group 3). The patient has received ADT (Casodex was prescribed on May 25 and Zoladex was administered on June 22). The patient has received 40 Gy of a prescribed 46 Sosa to the prostate and regional lymph nodes with an intensity modulated radiotherapy plan utilizing a step and shoot treatment technique. An additional 32 Sosa will be delivered to the prostate gland subsequent to the initial cadena. Upon review of systems, he reported worsening nocturia. He drinks fluid prior to bedtime. On physical examination, the patient weighed 230 lbs. His temperature was 96.5 ???F with a blood pressure of 156/96 mmHg. The pulse was 62 bpm and his respiratory rate was 20. There was no erythema within the treatment cadena. Continue pelvic radiotherapy as prescribed. I asked him to stop night time fluid intake. Signed by: Dr. Patrick Hill 08/21/2021 10:41:29 AM
--- NOTE | 2021-08-28 10:40 | ONCRAD TMN_ITS ---
Radiation Oncology Treatment Management Note Patient Name: Serg aBlderrama Date of : 1945 Date of Service: 08/28/2021 Attending Physician: Patrick Hill M.D. Serg Balderrama is a 76 year old white male diagnosed with a clinical stage IIIA (T1bN0) high-risk stratification prostate cancer. His initial PSA was 30.3 ng/mL. A TRUS biopsy diagnosed an adenocarcinoma of the prostate with a Sanjiv Score of 4+3 (Grade Group 3). The patient has received ADT (Casodex was prescribed on May 25 and Zoladex was administered on June 22). The patient has received 50 Gy of a prescribed 78 Gy to the prostate. Upon review of systems, he reported nocturia (4 times). On physical examination, the patient weighed 229 lbs. His temperature was 97.2 ???F and the blood pressure was 143/84 mmHg. The pulse was 61 bpm and his respiratory rate was 20. There was no erythema within the treatment cadena. Continue pelvic radiotherapy as planned. Signed by: Dr. Patrick Hill 08/28/2021 10:38:44 AM
--- NOTE | 2021-09-04 10:42 | ONCRAD TMN_ITS ---
Radiation Oncology Treatment Management Note Patient Name: Serg Balderrama Date of : 1945 Date of Service: 09/04/2021 Attending Physician: Patrick Hill M.D. Serg Balderrama is a 76 year old white male diagnosed with a clinical stage IIIA (T1bN0) high-risk stratification prostate cancer. His initial PSA was 30.3 ng/mL. A TRUS biopsy diagnosed an adenocarcinoma of the prostate with a Sanjiv Score of 4+3 (Grade Group 3). The patient has received ADT (Casodex was prescribed on May 25 and Zoladex was administered on June 22). The patient has received 60 Gy of a prescribed 78 Gy to the prostate delivered with an intensity modulated radiotherapy plan utilizing a step and shoot treatment technique Upon review of systems, he reported continued nocturia (his baseline). On physical examination, the patient weighed 226 lbs. His temperature was 96.3 ???F and the blood pressure was 157/88 mmHg. The pulse was 63 bpm and his respiratory rate was 20. There was no erythema within the treatment cadena. Continue pelvic radiotherapy as prescribed. Signed by: Dr. Patrick Hill 09/04/2021 10:41:51 AM
== END 2021-09-10 23:59 | disposition home or self-care (01) ==
LOC: ONCMED 06:18
PROVIDERS: PCP Family Medicine; Visit Provider Radiology Radiation Oncology
DX: Z51.0 Encounter for antineoplastic radiation therapy (principal); C61 Malignant neoplasm of prostate; Z79.899 Other long term (current) drug therapy
CPT/HCPCS: 77300; 77336; 77338; 77385

== ENCOUNTER 2021-09-19 06:23 | Outpatient (RCR) | payer MEDICARE, SELFPAY ==
--- NOTE | 2021-09-12 16:12 | ONCRAD TMN_ITS ---
Radiation Oncology Weekly Treatment Management Patient: Conchis Casas MR#: [id number] : 1945> Attending Physician: Dr. Gerald Odonnell Date of Service: 09/11/2021 Referring Physician(s) : Cyn Arredondo M.D. Diagnosis: C61 - Malignant neoplasm of prostate, Diagnosed 05/25/2021 (Active) Radiotherapy to date: Course: Prostate CA, Treatment Site: ProstateBoost:1, Ref. ID: [id number], Energy: 15X, Dose/Fx (cGy): 200, #Fx: , Dose Correction (cGy): 0, Total Dose (cGy): 2,200, Start Date: 08/25/2021, Elapsed Days: 14 Treatment Site: Prostate Ca, Ref. ID: [id number], Energy: 15X, Dose/Fx (cGy): 200, #Fx: , Dose Correction (cGy): 0, Total Dose (cGy): 4,600, Start Date: 07/24/2021, Elapsed Days: 31 Reason for visit: The patient is being seen today as part of their regularly scheduled weekly on treatment visits to assess for acute toxicities from radiotherapy. Review of Systems: He notes ongoing 4 to 7 x nocturia with good flow and no dysuria. This has been present for a long time predating his radiation treatment. On 2 Flowmax q HS. He thought that it helped but now he is not sure that it is doing anything. He does drink a lot of fluids. Not interested yet in adding any other treatment for this despite the fact that it is disruptive to his sleep. He is not on diuretic treatment. Bowels are ok. Some fatigue noted. Vital Signs: Performed on 09/11/2021 10:28 AM BMI - 36.381 kg/m2 (high), Height - 66.00 in, Weight - 225.4 lbs, Temperature - 97.0 f, Pulse - 72 /min, Respiration - 20 /min, O2 Sat - 98 %, Pain - 0 and BP - 123/ 91 mm(hg)(/high). Physical Exam: Imaging: Radiation therapy imaging related to accurate target localization (i.e. KV, MV and CBCT) was reviewed. Appropriate changes, if any, were made to ensure treatment accuracy. Plan: Good tolerance of treatment. Continue treatment as planned. Restrict fluids in the afternoon and evening. Consider adding oxybutynin if symptoms persist after recovery from radiation in 1 or more months after treatment. Signed by: Dr. Gerald Odonnell 09/12/2021 4:10:00 PM
--- NOTE | 2021-09-18 11:21 | ONCRAD TMN_ITS ---
Radiation Oncology Treatment Management Note Patient Name: Serg Balderrama Date of : 1945 Date of Service: 09/18/2021 Attending Physician: Patrick Hill M.D. Serg Balderrama is a 76 year old white male diagnosed with a clinical stage IIIA (T1bN0) high-risk stratification prostate cancer. His initial PSA was 30.3 ng/mL. A TRUS biopsy diagnosed an adenocarcinoma of the prostate with a Sanjiv Score of 4+3 (Grade Group 3). The patient has received ADT (Casodex was prescribed on May 25 and Zoladex was administered on June 22). The patient has received 76 Gy of a prescribed 78 Gy to the prostate delivered with an intensity modulated radiotherapy plan utilizing a step and shoot treatment technique Upon review of systems, he did not report any significant complaints. On physical examination, the patient weighed 226 lbs. His temperature was 97.2 ???F and the blood pressure was 137/80 mmHg. The pulse was 78 bpm and his respiratory rate was 20. There was no erythema within the treatment cadena. Continue pelvic radiotherapy as planned. Signed by: Dr. Patrick Hill 09/18/2021 11:20:33 AM
[2021-09-18 12:07] LABS: Alanine Aminotransferase 13 U/L (0-41); Alkaline Phosphatase 74 IU/L (40-130); Blood Urea Nitrogen 19 mg/dL (8-23); Calcium 9.1 mg/dL (8.5-10.5); Carbon Dioxide 26 mmol/L (22-29); Chloride 102 mmol/L (98-107); Glucose 79 mg/dL (65-115); Osmolality Calculated 289 mOsm/kg (285-295); Sodium 139 mmol/L (136-145); Total Bilirubin 0.5 mg/dL (0.15-1.2)
[2021-09-18 12:35] LABS: Anion Gap 15.5 (5-19); Aspartate Amino Transferase 20 U/L (0-40); Potassium 4.5 mmol/L (3.5-5.1)
--- NOTE | 2021-09-18 13:16 | ONC FU_ITS ---
Dr. Arredondo follow up note Patient: Serg Balderrama Unit #: [id number]: 1945 Dicatated By: Cyn Arredondo M.D.Date of Visit:Sep 18, 2021 Onc Med Follow-up/Prog Note History of Present Illness: Mr. 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 No osteoblastic bone disease seen. And bone scan showed increased uptake in the mid sternal body, otherwise unremarkable plain x-rays sternum showed no obvious abnormality, as per patient a year ago he had a 'face first' fall and at that time he was told that his sternum sustained injury/fracture. Patient denies any specific complaints denies any dysuria or hematuria denies any new bony pains except chronic left knee pain and knee replacement is under consideration. Denies any weight loss, denies any smoking or alcohol use denies any abdominal pain or dysuria or hematuria. Started on daily Casodex on May 25, 2021 and 3 monthly Zoladex was added on June 22, 2021 Came for follow-up, denies any specific complaints, no fever chills, no nausea or vomiting, no diarrhea constipation, no dysuria or hematuria, tolerating combined ADT with radiation well as per patient he has 1 more dose to go and with that he will conclude his radiation therapy, patient is due for his 3 monthly dose of Zoladex today. Medications: Carvedilol 1 Tablet (of 12.5 mg) Oral b.i.d., Pravastatin Sodium 1 Tablet (of 40 mg) Oral daily Allergies: No Known Allergies. Review of Systems: Review of Systems is not available for this patient. Vital Signs: Performed on Sep 18, 2021 11:16 Height - 66.00 in Weight - 226.2 lbs Temperature - 97.2 F Pulse - 78 /min Respiration - 20 /min BP - 137/80 mm(hg) O2 Sat - 98 % Pain - 0 Performed on Sep 18, 2021 11:16 BMI - 36.51 kg/m2 (HIGH) Performance Status: 1 - No physically strenuous activity, but ambulatory and able to carry out light or sedentary work (e.g. office work, light house work). (ECOG) Physical Examination: ENMT - No mouth sores, no thrush, no jaundice, Respiratory - Lungs are clear to auscultation, Cardiovascular - Regular rate and rhythm of heart, Abdomen - Soft, bowel sounds present, Extremities - No visible edema. Lab/Imaging: Most recent lab results are not available for this patient. Impression: Prostate cancer, per TRUS P/biopsy done on April 14, 2021 which showed [place] score 4+3, all core biopsies obtained from bilateral lobes of prostate were positive, PSA was more than 30 on January 16, 2021, CT scan of abdomen pelvis done on May 04, 2021 showed no evidence of pelvic lymphadenopathy or bone abnormality T1c versus T3a, NX MX, PSA 30.3 in January 2021, high risk because of PSA more than 30 Started on combined radiation therapy ADT with Casodex which was given for 1 month starting May 25, 2021 and 3 monthly Zoladex was added on June 22, 2021, being high risk for year and 1/2 to 3 years Bone scan done on May 04, 2021 showed no evidence of bone mets but sternum abnormality, patient has history of fall with sternal injury about a year prior to the diagnosis, Dr. 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 In the meantime we will proceed with his next 3 monthly dose of Zoladex today and then he will return to clinic in 3 months with a PSA and for Zoladex as patient is a high risk e.g. his PSA was more than 20 at the time of diagnosis, will continue with 3 monthly Zoladex alone for 1-1/2-3 3 years, as long as tolerated. Signed By: Cyn Arredondo M.D. <<Signature on File>>
[2021-09-18] MEDS: lidocaine 1% INJ 20 mL INJECTION (13:25)
[2021-09-18] MEDS: goserelin acetate 10.8 mg Implant SUBCUT (13:35)
--- NOTE | 2021-09-19 10:13 | N.ONRD TS_ITS ---
Radiation OncologyTreatment Summary Patient Name: Serg Balderrama Date of : 1945 Date of Service: 09/19/2021 Attending Physician: Patrick Hill M.D. Serg Balderrama has completed definitive prostate radiotherapy for the management of a clinical stage IIIA (T1bN0) high-risk prostate cancer. His initial PSA was 30.3 ng/mL. A TRUS biopsy diagnosed an adenocarcinoma of the prostate with a [place] Score of 4+3 (Grade Group 3). The patient has received ADT (Casodex was prescribed on May 25 and Zoladex was administered on June 22). Pelvic radiation therapy was delivered between the dates of July 24, 2021 through September 19, 2021. A prescribed dose of 78 Gy was delivered in 39 fractions encompassing 58 elapsed days. The prostate gland, seminal vesicles, and regional lymph node stations were treated utilizing an intensity modulated radiotherapy plan with a step and shoot treatment technique. The plan arranged nine gantry angles (5???, 35???, 70???, 105???, 140???, 225???, 260???, 295???, and 330???) replicating an arc. The collimator rotation was 0???. The field sizes spanned 15.6 cm x 18.5 cm to 19.5 cm x 19.5 cm. The SSDs measured a minimum of 79.5 cm to a maximum of 85.6 cm. The ports delivered 300 MU, 248 MU, 208 MU, 225 MU, 228 MU, 203 MU, 271 MU, 236 MU, and 290 MU corresponding to the gantry angles described. The initial cadena began on July 24 2021 and continued through August 24, 2021. A prescribed dose of 46 Sosa was administered 23 fractions over 32 elapsed days. The prostate gland and seminal vesicles were subsequently treated incorporating and intensity modulated radiotherapy plan with a step and shoot treatment technique. The plan designed nine gantry angles (5???, 35???, 70???, 105???, 140???, 225???, 260???, 295???, and 330???) replicating an arc. The collimator rotation was 0???. The field sizes varied between 9.6 cm x 9.3 cm to 10.3 cm x 9.3 cm. The SSDs measured a minimum of 79.5 cm to a maximum of 85.6 cm. The ports allocated 128 MU, 125 MU, 106 MU, 96 MU, 116 MU, 86 MU, 97 MU, 93 MU, and 1300 MU corresponding to the gantry angles described. The reduced ports started on August 25, 2021 and concluded on September 19, 2021. An additional 32 Gy was allocated in 16 fractions over 26 elapsed days. All treatments were performed with the [employer] linear accelerator and an isocentric technique. High energy photons were prescribed. The dose was calculated by Anisotropic Analytic Algorithm with the plan normalized to deliver 100% of the prescription dose to 98% of the planning target volume. Signed by: Dr. Patrick Hill 09/19/2021 10:10:58 AM
== END 2021-10-10 23:59 | disposition home or self-care (01) ==
LOC: ONCMED 06:23
PROVIDERS: Internal Medicine Hematology & Oncology; Absent Provider Radiology Radiation Oncology; PCP Family Medicine; Visit Provider Radiology Radiation Oncology
DX: Z51.0 Encounter for antineoplastic radiation therapy (principal); C61 Malignant neoplasm of prostate; R97.20 Elevated prostate specific antigen [PSA]; M17.0 Bilateral primary osteoarthritis of knee; Z79.818 Long term (current) use of other agents affecting estrogen receptors and estrogen levels
CPT/HCPCS: 36415; 77336; 77385; 80053; 84153; 96372; 96402; 99215; J9202

== ENCOUNTER 2021-11-09 10:24 | Outpatient (RCR) | payer MEDICARE, SELFPAY ==
--- NOTE | 2021-11-09 13:08 | ONCRAD EPV_ITS ---
Radiation Oncology Established Patient Visit Patient: Conchis Ulrich [id number] : 1945> Age: 76> Sex: Male> Dictated by: Dr. Krunal Herrera Date of Service: 11/09/2021 Referring Physician(s) : Cyn Arredondo M.D. Diagnosis: C61 - Malignant neoplasm of prostate, Diagnosed 05/25/2021 (Active) Prostate cancer Mr. Serg Balderrama, is a 76-year-old gentleman with a history of progressive PSA level since 2016 eventually on on January 16, 2021 his PSA was 30.3, SHAVON showed no distinct nodularity but it was difficult exam due to patient's perineal thickness, and eventually patient underwent TRUS/biopsy on April 14, 2021, all cores from both lobes of prostate gland showed large volume BAK[employer] BENCH Steen 4+3. 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 No osteoblastic bone disease seen. And bone scan showed increased uptake in the mid sternal body, otherwise unremarkable plain x-rays sternum showed no obvious abnormality, as per patient a year ago he had a 'face first' fall and at that time he was told that his sternum sustained injury/fracture. Patient denies any specific complaints denies any dysuria or hematuria denies any new bony pains except chronic left knee pain and knee replacement is under consideration. Denies any weight loss, denies any smoking or alcohol use denies any abdominal pain or dysuria or hematuria. Started on daily Casodex on May 25, 2021 and 3 monthly Zoladex was added on June 22, 2021 Came for follow-up, denies any specific complaints, no fever chills, no nausea or vomiting, no diarrhea constipation, no dysuria or hematuria, tolerating combined ADT with radiation well as per patient he has 1 more dose to go and with that he will conclude his radiation therapy, patient is due for his 3 monthly dose of Zoladex today. Radiotherapy to Date: Course: Prostate CA, Treatment Site: ProstateBoost:1, Ref. ID: [id number], Energy: 15X, Dose/Fx (cGy): 200, #Fx: 16 / 16, Dose Correction (cGy): 0, Total Dose (cGy): 3,200, Start Date: 08/25/2021, End Date: 09/19/2021, Elapsed Days: 25 Course: Prostate CA, Treatment Site: Prostate Ca, Ref. ID: [id number], Energy: 15X, Dose/Fx (cGy): 200, #Fx: , Dose Correction (cGy): 0, Total Dose (cGy): 4,600, Start Date: 07/24/2021, End Date: 08/24/2021, Elapsed Days: 31 Current History: Mr. Balderrama returns for follow-up approximately 6 weeks after finishing radiation to the pelvic nodes and prostate. He is receiving combined modality therapy with ADT because of having a high risk cancer. He presented with a PSA slightly above 30 and had 12 of 12 cores from the prostate involved with Steen 4+3 adenocarcinoma.. 11 cores had 100% involvement by cancer in the 12 core had 95% involvement. Overall Mr. Balderrama tolerated radiation well. He has no bowel complaints whatsoever. His only bladder complaint is nocturia x5 or 6. He had nocturia x3 prior to initiating treatment. He denies dysuria, hematuria, pyuria, urgency, starting/stopping, hesitancy, incomplete emptying, or daytime frequency. Current Medications: Bicalutamide, carvedilol,pravastatin Sodium. Allergies: No Known Allergies Current Complaints / Review of Systems: . In addition to the increased nocturia, he also complains fatigue and hot flashes related to hormonal therapy. Vital Signs: Performed on 11/09/2021 10:48 AM BMI - 37.285 kg/m2 (high), Height - 66 in, Weight - 231 lbs, Temperature - 96.9 f, Pulse - 65 /min, Respiration - 18 /min, O2 Sat - 93 % (low), Pain - 0, Fatigue - 6 and BP - 145/ 85 mm(hg)(high/). Physical Exam: General: Alert and oriented x 3. No acute distress. HEENT: Normocephalic, atraumatic. NECK: Supple without supraclavicular or jugular lymphadenopathy. LUNGS: Clear to auscultation bilaterally without rales, rhonchi or wheeze. HEART: Regular rate and rhythm, normal S1 and S2 without murmur, gallop or rub. MUSCULOSKELETAL: No tenderness or percussion pain over the axial skeleton, scapulae or pelvis. He walks with a limp that is chronic. ABDOMEN: Soft, nontender, nondistended without masses or organomegaly. Bowell sounds are present. I did not do a rectal examination because his prostate was normal to palpation when I evaluated him prior to the initiation of treatment. NEUROLOGIC: Cranial nerves II ???XII are grossly intact. Performance Status: Lab: None pending. On September 18 his PSA was down from the pretreatment value of slightly over 30 to 2.46. Pathology: Primary, c61 - malignant neoplasm of prostate, Diagnosed 05/25/2021 (active). Impression: Based on PSA, excellent response to treatment. His nocturia should improve with time. Because of his high risk disease, he will stay on hormonal therapy 1-1/2 to 3 years, depending upon response and tolerance. He will be seeing Dr. Arredondo for follow-up in December for his next PSA and hormone shot. Signed by: 11/09/2021 1:06:51 PM <<Signature on File>> Time spent with patient: CPT Code: CPT Code:
== END 2021-11-10 23:59 | disposition home or self-care (01) ==
LOC: ONCMED 10:24
PROVIDERS: PCP Family Medicine; Visit Provider Specialist
DX: C61 Malignant neoplasm of prostate (principal); R97.21 Rising PSA following treatment for malignant neoplasm of prostate; Z79.818 Long term (current) use of other agents affecting estrogen receptors and estrogen levels; Z92.3 Personal history of irradiation
CPT/HCPCS: 99024

== ENCOUNTER 2021-12-21 06:24 | Outpatient (RCR) | payer MEDICARE, SELFPAY ==
[2021-12-21 11:28] LABS: Basophils % 0.5 %; Eosinophils # 0.6 10^3/uL (0.0-0.8); Eosinophils % 11.4 %; Hematocrit 41.6 % (42.0-52.0); Lymphocytes # 0.8 10^3/uL (0.8-4.8); Mean Corpuscular HGB Conc 33.7 g/dL (30.0-36.0); Mean Corpuscular Hemoglobin 34.1 pg (28.0-34.0); Mean Corpuscular Volume 101.5 fl (80-94); Mean Platelet Volume 9.5 fL (7.4-10.4); Monocytes # 0.7 10^3/uL (0.2-0.9); Monocytes % 12.6 %; Neutrophils # 3.28 10^3/uL (1.8-7.7); Neutrophils % 60.1 %; Nucleated Red Blood Cells % 0 %; Platelet Count 180 10^3/cmm (130-400); Red Cell Distribution Width 12.1 % (12.1-15.1); White Blood Count 5.5 10^3/uL (4.0-10.0)
[2021-12-21 12:15] LABS: Alanine Aminotransferase 15 U/L (0-41); Albumin Level 4.1 g/dL (3.5-5.2); Alkaline Phosphatase 91 IU/L (40-130); Anion Gap 14.3 (5-19); Aspartate Amino Transferase 23 U/L (0-40); Blood Urea Nitrogen 21 mg/dL (8-23); Calcium 9.8 mg/dL (8.5-10.5); Carbon Dioxide 26 mmol/L (22-29); Chloride 101 mmol/L (98-107); Globulin 3.4 g/dL (1.3-4.6); Glucose 78 mg/dL (65-115); Osmolality Calculated 286 mOsm/kg (285-295); Potassium 4.3 mmol/L (3.5-5.1); Prostate Specific Antigen 0.903 ng/mL (0-4); Sodium 137 mmol/L (136-145); Total Bilirubin 0.3 mg/dL (0.15-1.2); Total Protein 7.5 g/dL (6.6-8.7)
[2021-12-21] MEDS: lidocaine 1% INJ 20 mL INJECTION (13:22)
[2021-12-21] MEDS: goserelin acetate 10.8 mg Implant SUBCUT (13:27)
--- NOTE | 2021-12-21 15:57 | ONC FU_ITS ---
Dr. Arredondo follow up note Patient: Serg Balderrama Unit #: [id number]: 1945 Dicatated By: Cyn Arredondo M.D.Date of Visit:Dec 21, 2021 Onc Med Follow-up/Prog Note History of Present Illness: Mr. Serg Balderrama, is a 76-year-old gentleman with a history of progressive PSA level since 2016 eventually on on January 16, 2021 his PSA was 30.3, SHAVON showed no distinct nodularity but it was difficult exam due to patient's perineal thickness, and eventually patient underwent TRUS/biopsy on April 14, 2021, all cores from both lobes of prostate gland showed large volume [employer] [facility] 4+3. 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 No osteoblastic bone disease seen. And bone scan showed increased uptake in the mid sternal body, otherwise unremarkable plain x-rays sternum showed no obvious abnormality, as per patient a year ago he had a 'face first' fall and at that time he was told that his sternum sustained injury/fracture. Patient denies any specific complaints denies any dysuria or hematuria denies any new bony pains except chronic left knee pain and knee replacement is under consideration. Denies any weight loss, denies any smoking or alcohol use denies any abdominal pain or dysuria or hematuria. Started on daily Casodex on May 25, 2021 and 3 monthly Zoladex was added on June 22, 2021, Patient also received concurrent radiation therapy to his prostate which he completed on September 19, 2021, Casodex was discontinued and now on 3 monthly Zoladex Came for follow-up, denies any specific complaints, no fever chills, no nausea or vomiting, no diarrhea or constipation, no dysuria or hematuria, no new bony pains, occasionally hot flashes otherwise tolerating 3 monthly Zoladex well Medications: Carvedilol 1 Tablet (of 12.5 mg) Oral b.i.d., Pravastatin Sodium 1 Tablet (of 40 mg) Oral daily Allergies: No Known Allergies. Review of Systems: Review of Systems is not available for this patient. Vital Signs: Performed on Dec 21, 2021 12:55 Height - 66.00 in Weight - 227.8 lbs (LOW) BSA - 2.11 sq.m BMI - 36.77 (HIGH) Temperature - 97.6 F (LOW) Pulse - 91 /min Respiration - 20 /min BP - 148/86 mm(hg) (HIGH) O2 Sat - 99 % Pain - 0 Fatigue - 5 Performance Status: 0 - Fully active, able to carry on all predisease activities without restrictions. (ECOG) Physical Examination: ENMT - No mouth sores, no thrush, no jaundice, Respiratory - Lungs are clear to auscultation, Cardiovascular - Regular rate and rhythm of heart, Abdomen - Soft, bowel sounds present, Extremities - No visible edema. Lab/Imaging: Most recent lab results are not available for this patient. Impression: Prostate cancer, per TRUS P/biopsy done on April 14, 2021 which showed Sanjiv score 4+3, all core biopsies obtained from bilateral lobes of prostate were positive, PSA was more than 30 on January 16, 2021, CT scan of abdomen pelvis done on May 04, 2021 showed no evidence of pelvic lymphadenopathy or bone abnormality T1c versus T3a, NX MX, PSA 30.3 in January 2021, high risk because of PSA more than 30 Started on combined radiation therapy ADT with Casodex which was given for 1 month starting May 25, 2021 and 3 monthly Zoladex was added on June 22, 2021, being high risk for year and 1/2 to 3 years, Patient completed radiation therapy on September 19, 2021 Bone scan done on May 04, 2021 showed no evidence of bone mets but sternum abnormality, patient has history of fall with sternal injury about a year prior to the diagnosis, Dr. 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 <<Signature on File>>
== END 2022-01-08 23:59 | disposition home or self-care (01) ==
LOC: ONCMED 06:24
PROVIDERS: PCP Family Medicine; Visit Provider Internal Medicine Hematology & Oncology
DX: C61 Malignant neoplasm of prostate (principal); M17.0 Bilateral primary osteoarthritis of knee; Z79.818 Long term (current) use of other agents affecting estrogen receptors and estrogen levels
CPT/HCPCS: 36415; 80053; 84153; 85025; 96372; 96402; 99215; J9202

== ENCOUNTER 2022-05-07 08:53 | Oncology outpatient (recurring) (ONCR) | payer MEDICARE, SELFPAY ==
[2022-05-07 09:50] LABS: Alanine Aminotransferase 12 U/L (0-41); Alkaline Phosphatase 102 IU/L (40-130); Anion Gap 11.4 (5-19); Aspartate Amino Transferase 17 U/L (0-40); Blood Urea Nitrogen 20 mg/dL (8-23); Calcium 9.2 mg/dL (8.5-10.5); Carbon Dioxide 29 mmol/L (22-29); Chloride 103 mmol/L (98-107); Globulin 3.3 g/dL (1.3-4.6); Glucose 99 mg/dL (65-115); Osmolality Calculated 291 mOsm/kg (285-295); Potassium 4.4 mmol/L (3.5-5.1); Prostate Specific Antigen 0.224 ng/mL (0-4); Sodium 139 mmol/L (136-145); Total Bilirubin 0.4 mg/dL (0.15-1.2); Total Protein 7.3 g/dL (6.6-8.7)
[2022-05-07] MEDS: lidocaine 1% INJ 20 mL SUBCUT (11:43)
[2022-05-07] MEDS: goserelin acetate 10.8 mg Implant SUBCUT (12:02)
== END 2022-05-10 23:59 | disposition home or self-care (01) ==
PROVIDERS: PCP Family Medicine; Visit Provider Internal Medicine Hematology & Oncology
DX: Z51.11 Encounter for antineoplastic chemotherapy (principal); C61 Malignant neoplasm of prostate; I10 Essential (primary) hypertension; Z87.891 Personal history of nicotine dependence
CPT/HCPCS: 36415; 80053; 84153; 96372; 96402; 99214; J9202

== ENCOUNTER 2022-08-10 08:51 | Oncology outpatient (recurring) (ONCR) | payer MEDICARE, SELFPAY ==
[2022-08-10 09:17] LABS: Basophils % 0.7 %; Eosinophils # 0.6 10^3/uL (0.0-0.8); Eosinophils % 9.9 %; Hematocrit 40.7 % (42.0-52.0); Lymphocytes # 0.7 10^3/uL (0.8-4.8); Lymphocytes % 12.9 %; Mean Corpuscular HGB Conc 34.4 g/dL (30.0-36.0); Mean Corpuscular Hemoglobin 34.4 pg (28.0-34.0); Mean Platelet Volume 9.3 fL (7.4-10.4); Monocytes # 0.6 10^3/uL (0.2-0.9); Monocytes % 9.9 %; Neutrophils # 3.77 10^3/uL (1.8-7.7); Neutrophils % 66.4 %; Nucleated Red Blood Cells % 0 %; Platelet Count 170 10^3/cmm (130-400); Red Blood Count 4.07 10^6/uL (4.1-5.3); Red Cell Distribution Width 12.7 % (12.1-15.1); White Blood Count 5.7 10^3/uL (4.0-10.0)
[2022-08-10 09:49] LABS: Alanine Aminotransferase 13 U/L (0-41); Albumin Level 3.9 g/dL (3.5-5.2); Alkaline Phosphatase 90 U/L (40-130); Anion Gap 8.9 (5-19); Aspartate Amino Transferase 16 U/L (0-40); Blood Urea Nitrogen 21 mg/dL (8-23); Calcium 9.4 mg/dL (8.5-10.5); Carbon Dioxide 31 mmol/L (22-29); Chloride 99 mmol/L (98-107); Glucose 112 mg/dL (65-115); Osmolality Calculated 284 mOsm/kg (285-295); Potassium 3.9 mmol/L (3.5-5.1); Prostate Specific Antigen 0.125 ng/mL (0-4); Sodium 135 mmol/L (136-145); Total Bilirubin 0.4 mg/dL (0.15-1.2); Total Protein 6.9 g/dL (6.6-8.7)
== END 2022-08-10 23:59 | disposition home or self-care (01) ==
PROVIDERS: PCP Family Medicine; Visit Provider Internal Medicine Hematology & Oncology
DX: C61 Malignant neoplasm of prostate (principal); Z79.818 Long term (current) use of other agents affecting estrogen receptors and estrogen levels; Z79.899 Other long term (current) drug therapy
CPT/HCPCS: 80053; 84153; 85025; 99214

== ENCOUNTER 2024-02-19 09:43 | Oncology outpatient (recurring) (ONCR) | payer MEDICARE, SELFPAY ==
[2024-02-19 11:24] LABS: Basophils # 0.1 10^3/uL (0.0-0.1); Basophils % 0.9 %; Eosinophils # 0.4 10^3/uL (0.0-0.8); Eosinophils % 7.1 %; Hematocrit 37.1 % (37-53); Lymphocytes # 0.9 10^3/uL (0.8-4.8); Lymphocytes % 15.7 %; Mean Corpuscular HGB Conc 32.1 g/dL (30-55); Mean Corpuscular Hemoglobin 31.3 pg (27-33); Mean Corpuscular Volume 97.6 fl (82-101); Mean Platelet Volume 9.5 fL (7.4-10.4); Monocytes # 0.7 10^3/uL (0.2-0.9); Monocytes % 12.4 %; Neutrophils # 3.49 10^3/uL (1.8-7.7); Neutrophils % 63.5 %; Nucleated Red Blood Cells % 0 %; Platelet Count 191 10^3/cmm (157-399); Red Cell Distribution Width 13.7 % (12.1-15.1); Reticulocyte % 1.7 % (0.5-2.0); White Blood Count 5.49 10^3/uL (3.29-11.43)
[2024-02-19 11:58] LABS: Carcinoembryonic Antigen 2.7 ng/mL (0.0-4.7); Thyroid Stimulating Hormone 0.86 uIU/mL (0.27-4.20)
[2024-02-19 12:09] LABS: Alanine Aminotransferase 8 U/L (0-41); Albumin Level 3.8 g/dL (3.5-5.2); Alkaline Phosphatase 82 U/L (40-130); Anion Gap 12.4 (5-19); Aspartate Amino Transferase 15 U/L (0-40); Blood Urea Nitrogen 15 mg/dL (8-23); Calcium 8.9 mg/dL (8.5-10.5); Carbon Dioxide 27 mmol/L (22-29); Chloride 104 mmol/L (98-107); Creatinine Clr Calc Pharmacy 89.1411; Glucose 79 mg/dL (65-115); Lactate Dehydrogenase 187 U/L (135-225); Osmolality Calculated 288 mOsm/kg (285-295); Potassium 4.4 mmol/L (3.5-5.1); Sodium 139 mmol/L (136-145); Total Bilirubin 0.4 mg/dL (0.15-1.2); Total Protein 6.8 g/dL (6.6-8.7)
[2024-02-19 12:10] LABS: Hepatitis A Antibody IgM Non-Reactive (Nonreactive); Hepatitis B Core AB, Total Non-Reactive (Nonreactive); Hepatitis B Surface AB < 3.5 (11.5-1000); Hepatitis B Surface Antigen Non-Reactive (Nonreactive); Hepatitis C Virus Antibody Non-Reactive (Nonreactive)
[2024-02-19 12:51] LABS: Folate Level > 20.0 ng/mL (4.5-32.2)
[2024-02-19 12:55] LABS: Vitamin B12 457 pg/mL (232-1245)
[2024-02-22 11:35] LABS: Methylmalonic Acid 278 nmol/L (87-318)
== END 2024-03-10 23:59 | disposition home or self-care (01) ==
LOC: ONCMED 09:44
PROVIDERS: PCP Family Medicine; Visit Provider Internal Medicine
DX: C61 Malignant neoplasm of prostate (principal); C18.9 Malignant neoplasm of colon, unspecified; C77.2 Secondary and unspecified malignant neoplasm of intra-abdominal lymph nodes; I10 Essential (primary) hypertension; Z11.59 Encounter for screening for other viral diseases
CPT/HCPCS: 36415; 80053; 82378; 82607; 82746; 83615; 83921; 84153; 84403; 84443; 85025; 85045; 86705; 86706; 86709; 86803; 87340; 99215

== ENCOUNTER → 2024-03-04 10:31 | Outpatient (BNVA) | payer MEDICARE, SELFPAY | PROVIDERS: PCP Family Medicine; Visit Provider Surgery | DX: Z95.828 Presence of other vascular implants and grafts | CPT/HCPCS: 99204 ==

== ENCOUNTER → 2024-03-06 09:09 | Day surgery (SDC) | payer MEDICARE, SELFPAY ==
[2024-03-06] VITALS (7 sets, daily range): BP systolic 128–169; BP diastolic 65–107; PULSE 65–75; RESP 14–18; TEMP 36.1–36.3; O2SAT 94–97; BMI 33.4
--- NOTE | 2024-03-06 09:14 | P.HPUD_ITS ---
Surgery/Procedure H&P Update DATE OF PROCEDURE: March 06, 2024 DATE H&P PERFORMED: 03/04/24 H&P UPDATE INFORMATION: I have reviewed H&P completed within last 30 days, I have examined patient prior to procedure, No changes to prior documentation and H&P is in [facility] on date indicated PLANNED PROCEDURE: Operation Date: 03/06/24 11:00 Proposed Procedures p Portacath Placement [id number], C18.9(Not Applicable) - Patrick Bansal MD
--- NOTE | 2024-03-06 09:45 | SC_ITS ---
WS: [id number] C-ARM RADIOGRAPHS CHEST; 1 IMAGES HISTORY: Port Placement COMPARISON: None available. Intraoperative imaging during Mediport placement. RIGHT subclavian Mediport is present. The tip is di fficult to see on the C-arm image. This will be better seen by follow-up chest radiograph. IMPRESSION: Intraoperative imaging during RIGHT Mediport placement. Recommend follow-up chest radiograph to confi rm placement.
[2024-03-06] MEDS: sodium chloride 0.9% 1,000 ML 30 ML IV (10:22)
[2024-03-06] MEDS: ceFAZolin 2,000 MG in sodium chloride 0.9% (plus) 50 ML 100 MG IV (11:25)
[2024-03-06] MEDS: lidocaine-epi 1% 20 mL INJ INJECTION (11:59)
[2024-03-06] MEDS: heparin, porcine 1,000 unit/mL INJ 10 mL 6000 UNIT INJECTION (12:00)
--- NOTE | 2024-03-06 12:21 | PM.OP ---
Operative Report Date of procedure: March 06, 2024 Pre-op diagnosis: Colon cancer Post-op diagnosis: Same Post-op findings: Normal vascular anatomy Procedure done: Insertion of right IJ Port-A-Cath Implants: Bard Port-A-Cath Specimens removed/disposition: None Surgeon: Patrick Bansal MD [place] Marker: JOSE OR Staff Estimated blood loss: 5 Complications: none Brief History: 79-year-old male who presented to my clinic for evaluation for Port-A-Cath placement after discussion of all risk and benefits as documented in my preop note we decided to proceed. Procedure: Patient was brought into the OR, he was placed in a supine position, mother anesthesia sedation was given. Timeout was conducted after the skin was prepped and draped in the usual sterile fashion. I then proceeded to identify the right IJ vein with ultrasound, I infiltrated local anesthesia on top of the vein. I then proceeded to cannulate the vein under direct ultrasound guidance using an 18-gauge needle, the needle tip was seen entering the vein and immediate return of blood was noted. A wire was advanced through the needle and the needle was removed. The position of the wire was verified with ultrasound and fluoroscopy. The wire was then fixed to the drapes. I then placed my attention to the chest, local anesthesia was infiltrated in the previously marked area on the chest and then a tract connecting the chest to the wire insertion site in the neck. I then proceeded to make a 3.5 cm incision in the right upper chest, the incision was deepened to subcutaneous tissue with electrocautery and electrocautery was used to create the subcutaneous pocket to house the Port-A-Cath. I then proceeded to use a hemostat to create a tunnel from the chest wound to the neck. I then proceeded to make a 0.5 cm incision at the level of the wire insertion site in the neck. Hemostasis was verified. I then placed the Port-A-Cath in the pocket and tunneled the catheter using the provided tunneler. The catheter was cut to appropriate length under fluoroscopy guidance and then flushed. I then proceeded to insert an introducer with a peel-off sheath over the wire under direct fluoroscopic guidance. I then remove the wire and the introducer leaving the peel-off sheath in place. The catheter was then advanced through the peel-off sheath and the peel-off sheath was removed leaving the catheter in place. Fluoroscopy showed evidence of Adequate catheter position. I then proceeded to access the port; the port was retrieving blood and flushing fine, I then hep-locked the catheter. Hemostasis was verified. The wound was closed in layers using #3-0 Vicryl for the subcutaneous tissue and #4 Monocryl for the skin. Dermabond was applied. At the end of the procedure all counts were correct. The patient tolerated well the procedure and was transferred to the PACU in stable condition.
--- NOTE | 2024-03-06 13:16 | ANE.PACU2 ---
Inpatient post-anesthesia follow up: Airway intact: Yes Vital signs: Temperature 97.3 F Pulse Rate 73 Respiratory Rate 18 Blood Pressure 165/92 Pulse Oximetry 97 Oxygen Delivery Me thod Room Air Oxygen Flow Rate Fraction of Inspir ed Oxygen Hydration adequate: Yes Nausea and vomiting: No Pain level: 1 Mental status: Baseline
== END | disposition home or self-care (01) ==
PROVIDERS: PCP Family Medicine; Visit Provider Surgery
PROC: (CPT 36561; principal; 2024-03-06 11:00)
DX: C18.9 Malignant neoplasm of colon, unspecified (principal); Z87.891 Personal history of nicotine dependence; I10 Essential (primary) hypertension; Z85.46 Personal history of malignant neoplasm of prostate
CPT/HCPCS: 36561; 76000; 77001; C1788; J0690; J1644; J2371; J2704; J3010; J7030; J9999

== ENCOUNTER 2024-03-16 09:45 | Outpatient (CLI) | payer MEDICARE, SELFPAY ==
--- NOTE | 2024-03-16 10:15 | MR_ITS ---
WS: [id number] MRI HEAD WITH CONTRAST TECHNIQUE: Sagittal T1, T2 axial, T2 axial FLAIR, axial susceptibility weighted imaging, axial diffus ion weighted images, and coronal T2 images were obtained. Pre and post-T1 axial and post T1 coronal i mages. ADC and FSPGR images. CLINICAL INFORMATION: mailignant neoplasm of prostate COMPARISON: None. FINDINGS: No abnormal gadolinium enhancement. No evidence of enhancing intracranial metastatic disease. Normal dural venous sinuses. Normal cavernous sinuses and Meckel's cave. No evidence of restricted diffusion to suggest acute ischemia. Moderate to advanced small vessel changes with moderate to advanced parenchymal volume loss worse in the frontal lobes. Small vessel changes in the priyanka. Normal posterior fossa. Normal vascular flow voi ds at the skull base. No extra-axial fluid collections. No evidence of mass or mass effect. Paranasal sinuses and mastoid air cells are well aerated. Normal posterior nasopharynx. Tiny focus of hemoside rin adjacent to the RIGHT lateral ventricle. Normal optic chiasm and pituitary infundibulum. Mild symmetric atrophy temporal lobes and hippocampal formations. MR/MR head wo/w con [id number] IMPRESSION: 1. No evidence of enhancing intracranial metastatic disease. 2. Moderate to advanced small vessel changes with moderate parenchymal volume loss worse in the frontal lobes. 3. Small vessel changes in the priyanka. 4. No other acute findings.
[2024-03-16] MEDS: gadobenate dimeglumine 20 mL vial IV (10:26)
== END 2024-03-16 09:46 | disposition home or self-care (01) ==
LOC: RAD 09:45
PROVIDERS: PCP Family Medicine; Visit Provider Internal Medicine
DX: C18.9 Malignant neoplasm of colon, unspecified (principal); C77.2 Secondary and unspecified malignant neoplasm of intra-abdominal lymph nodes; C61 Malignant neoplasm of prostate; I67.82 Cerebral ischemia; G31.89 Other specified degenerative diseases of nervous system; G31.9 Degenerative disease of nervous system, unspecified
CPT/HCPCS: 70553; A9577

== ENCOUNTER → 2024-03-18 09:43 | Outpatient (BNVA) | payer MEDICARE, SELFPAY | PROVIDERS: PCP Family Medicine; Visit Provider Surgery | DX: C18.9 Malignant neoplasm of colon, unspecified (principal); C77.2 Secondary and unspecified malignant neoplasm of intra-abdominal lymph nodes | CPT/HCPCS: 99213 ==

== ENCOUNTER 2024-04-07 11:05 | Outpatient (CLI) | payer MEDICARE, SELFPAY ==
--- NOTE | 2024-04-07 11:00 | PETR_ITS ---
PROCEDURE INFORMATION: Exam: PET/CT Skull Base to Mid-thigh Exam date and time: 04/07/2024 11:27 AM Age: 79 years old Clinical indication: Condition or disease; Primary cancer: Prostate; Initial oncological staging assessment; Prior surgery; Surgery date: 6+ months; Surgery type: Heart; Additional info: Malignant neoplasm of prostate LABS AND CLINICAL REPORTS: Glucose: 101 mg/dl Treatment strategy for malignancy (PET staging): Initial Staging (PI) TECHNIQUE: Imaging protocol: Following at least four-hour fasting and following the injection of radiopharmaceutical, low dose CT images were obtained. Then, PET images were obtained. Attenuation corrected images were constructed using the CT scan. Fused images of PET and CT were reviewed. The standardized uptake values (SUV) reported below are maximum values within a region of interest, expressed in gm/ml. Exam includes orbital meatal line to mid-thigh. Radiopharmaceutical: 12.29 mCi F-18 FDG (Fluorodeoxyglucose), IV. Time of imaging post radiopharmaceutical administration: 1 hour Injection site: Left antecubital COMPARISON: MRI brain 03/16/2024, CT abdomen and pelvis 05/04/2021, NM bone scan whole body* [id number] 05/04/2021 8:44 AM FINDINGS: Tubes, catheters and devices: A right internal jugular central venous port catheter terminates in the distal SVC. Brain: Visualized brain has normal physiologic uptake. Pharynx: No abnormal uptake. Larynx: No abnormal uptake. Lungs, pleura and trachea: No abnormal uptake. Punctate non radiotracer avid nodular densities with a tree-in-bud configuration in the anterior inferior aspect of the right upper lobe are noted for example on series 3, image 90. Heart: Normal physiologic uptake. Mediastinal space: No abnormal uptake. Liver: No abnormal uptake. Gallbladder and bile ducts: No abnormal uptake. Pancreas: No abnormal uptake. Spleen: No abnormal uptake. Calcified granulomas in the spleen are present. Adrenal glands: No abnormal uptake. Kidneys and ureters: Normal physiologic uptake. Stomach and bowel: No abnormal uptake. A surgical staple line in the right colon is noted. Reproductive: There are coarse calcifications in the prostate gland. No elevated uptake. Vasculature: No abnormal uptake. There are diffuse atherosclerotic changes. Mild focal aneurysmal dilatation of the aortic arch on the left is noted with an overall caliber of 3.7 cm on series 3, image 72. Mild similar aneurysmal dilatation of the infrarenal abdominal aorta is noted measuring 3.3 x 3.3 cm. Lymph nodes: No abnormal uptake.Small benign-appearing non radiotracer avid calcified left hilar lymph nodes are present. Similar borderline prominence of a left inguinal region lymph node is noted measuring 2.4 x 0.9 cm on series 3, image 233 without elevated uptake compatible with a benign finding. Skeleton: No abnormal uptake in the visualized axial and appendicular skeleton. Degenerative changes in the spine are noted. Bilateral L5 pars defects are present. No acute fracture. Extensive appearing left glenohumeral joint primary osteoarthritic changes. Moderate bilateral sternoclavicular joint primary osteoarthritic changes are present. Osteophyte formation at the junction of the manubrium and sternum is also noted without elevated uptake. Soft tissues: No abnormal uptake in the visualized head, neck, chest, abdomen, pelvis, and extremities. Mild non radiotracer avid streaky density in the subcutaneous fat of the anterior left abdomen on CT series 3, image 154 is noted suggestive of scarring. METRICS: Mediastinal blood pool: SUV max 2.3 [facility] INIT[facility] [id number] IMPRESSION: 1. No evidence of radiotracer avid malignancy. 2. Non radiotracer avid punctate nodular densities with a tree-in-bud configuration in the right upper lobe are noted suggestive of atypical infectious involvement. A malignant etiology is less likely. 3. Mild aneurysmal dilatation of the aortic arch in infrarenal abdominal aorta. 4. Old granulomatous changes. 5. Additional nonurgent findings as detailed above.
== END 2024-04-07 11:06 | disposition home or self-care (01) ==
LOC: RAD 11:05
PROVIDERS: PCP Family Medicine; Visit Provider Internal Medicine
DX: C61 Malignant neoplasm of prostate (principal); C18.9 Malignant neoplasm of colon, unspecified; C77.2 Secondary and unspecified malignant neoplasm of intra-abdominal lymph nodes; R91.8 Other nonspecific abnormal finding of lung field; D73.89 Other diseases of spleen; N42.89 Other specified disorders of prostate; I71.22 Aneurysm of the aortic arch, without rupture; I71.43 Infrarenal abdominal aortic aneurysm, without rupture; I89.8 Other specified noninfective disorders of lymphatic vessels and lymph nodes; G31.89 Other specified degenerative diseases of nervous system; M43.06 Spondylolysis, lumbar region; M25.70 Osteophyte, unspecified joint
CPT/HCPCS: 78815; A9552

== ENCOUNTER 2024-04-09 09:09 | Oncology outpatient (recurring) (ONCR) | payer MEDICARE, SELFPAY ==
[2024-04-02 13:37] LABS: Basophils # 0.1 10^3/uL (0.0-0.1); Eosinophils # 0.6 10^3/uL (0.0-0.8); Eosinophils % 9.7 %; Hematocrit 37.9 % (37-53); Lymphocytes # 1.1 10^3/uL (0.8-4.8); Lymphocytes % 17.6 %; Mean Corpuscular HGB Conc 33.2 g/dL (30-55); Mean Corpuscular Hemoglobin 32.1 pg (27-33); Mean Corpuscular Volume 96.7 fl (82-101); Mean Platelet Volume 9.2 fL (7.4-10.4); Monocytes # 0.7 10^3/uL (0.2-0.9); Monocytes % 10.9 %; Neutrophils # 3.63 10^3/uL (1.8-7.7); Neutrophils % 60.8 %; Nucleated Red Blood Cells % 0 %; Platelet Count 169 10^3/cmm (157-399); Red Blood Count 3.92 10^6/uL (3.85-5.65); Red Cell Distribution Width 14.8 % (12.1-15.1); White Blood Count 5.97 10^3/uL (3.29-11.43)
[2024-04-02 14:06] LABS: Carcinoembryonic Antigen 2.3 ng/mL (0.0-4.7); Prostate Specific Antigen 0.045 ng/mL (0-4); Testosterone Total 20.9 ng/dL (193-740)
[2024-04-02 14:18] LABS: Alanine Aminotransferase 12 U/L (0-41); Albumin Level 3.7 g/dL (3.5-5.2); Alkaline Phosphatase 89 U/L (40-130); Anion Gap 12.4 (5-19); Aspartate Amino Transferase 17 U/L (0-40); Blood Urea Nitrogen 15 mg/dL (8-23); Calcium 8.7 mg/dL (8.5-10.5); Carbon Dioxide 25 mmol/L (22-29); Chloride 105 mmol/L (98-107); Creatinine Clr Calc Pharmacy 88.3474; Globulin 3.2 g/dL (1.3-4.6); Glucose 81 mg/dL (65-115); Osmolality Calculated 286 mOsm/kg (285-295); Potassium 4.4 mmol/L (3.5-5.1); Sodium 138 mmol/L (136-145); Total Bilirubin 0.3 mg/dL (0.15-1.2); Total Protein 6.9 g/dL (6.6-8.7)
== END 2024-04-10 23:59 | disposition home or self-care (01) ==
PROVIDERS: Internal Medicine; PCP Family Medicine; Visit Provider Internal Medicine Medical Oncology
DX: C18.2 Malignant neoplasm of ascending colon (principal); C61 Malignant neoplasm of prostate; Z90.49 Acquired absence of other specified parts of digestive tract; Z92.3 Personal history of irradiation; Z87.891 Personal history of nicotine dependence
CPT/HCPCS: 36415; 80053; 82378; 84153; 84403; 85025; 99213; 99215

== ENCOUNTER → 2024-06-19 10:30 | Outpatient (BNVA) | payer MEDICARE, SELFPAY | PROVIDERS: PCP Family Medicine; Visit Provider Surgery | DX: Z95.828 Presence of other vascular implants and grafts (principal) | CPT/HCPCS: 99214 ==